=== PATIENT | female | born 1990 | race African-American/Black ===

== ENCOUNTER 2016-08-18 13:44 | Emergency (ER) | payer OTHER ==
[2016-08-18 14:15] VITALS: BP 136/77; PULSE 111; TEMP 99; BMI 34.4
--- NOTE | 2016-08-18 14:47 | PDOC ---
History of Present Illness - General Chief Complaint: Vaginal Sxs Stated Complaint: PAIN Time Seen by Provider: 08/18/16 14:21 History Source: Patient Exam Limitations: No Limitations - History of Present Illness Travel History: No Initial Comments: 08/18/16 14:45 26 yr female with 3 days vaginal itching and white discharge. Pt denies fever, no abd pain or back pain. No history of STD's. Timing/Duration: reports: constant Quality: reports: mild Pain Radiation: reports: no radiation Activities at Onset: reports: none Past History - Past Medical History Allergies/Adverse Reactions: Allergies Allergy/AdvReac Type Severity Reaction Status Date / Time No Known Allergies Allergy Verified 08/18/16 14:11 Home Medications: Ambulatory Orders Miconazole/Cleanser 17 On Wipe [Monistat 3 Combo Pack] 1 each VG HS #1 kit 08/18 Other medical history: DENIES - Surgical History Other Surgical History: 08/18/16 14:45 none - Immunization History Immunization Up to Date: Yes - Psycho/Social/Smoking Cessation Hx Anxiety: No Suicidal Ideation: No Smoking History: Former smoker Have you smoked in the past 12 months: Yes Information on smoking cessation initiated: No Hx Alcohol Use: No Drug/Substance Use Hx: No Substance Use Type: None Abd/GI Specific PMHX - Complaint Specific PMHX Colitis: No Diverticulitis: No Gall Bladder Disease: No GERD: No Hepatitis: No Irritable Bowel Synd (IBS): No Pancreatitis: No GI Ulcer Disease: No Review of Systems - Review of Systems Able to Perform ROS?: Yes Is the patient limited [place] proficient: No Constitutional: No: Symptoms Reported HEENTM: No: Symptoms Reported Respiratory: No: Symptoms reported Cardiac (ROS): No: Symptoms Reported ABD/GI: No: Symptoms Reported, See HPI : Yes: See HPI *Physical Exam - Vital Signs Last Vital Signs Temp Pulse Resp BP Pulse Ox 99 F 111 H 20 136/77 08/18/16 14:11 08/18/16 14:11 08/18/16 14:11 08/18/16 14:11 - Physical Exam General Appearance: Yes: Nourished, Appropriately Dressed HEENT: positive: EOMI, ABILIO, Normal ENT Inspection, TMs Normal, Pharynx Normal Neck: positive: Supple. negative: Tender Respiratory/Chest: positive: Lungs Clear, Normal Breath Sounds Cardiovascular: positive: Regular Rhythm, Regular Rate Female Pelvic Exam: positive: normal external exam, normal adnexa, discharge ( white clumpy) Gastrointestinal/Abdominal: positive: Normal Bowel Sounds, Soft. negative: Tender Musculoskeletal: positive: Normal Inspection Extremity: positive: Normal Capillary Refill, Normal Inspection, Normal Range of Motion Integumentary: positive: Normal Color, Dry, Warm Neurologic: positive: Fully Oriented, Alert, Normal Mood/Affect, Normal Response , Motor Strength 5/5 Medical Decision Making - Medical Decision Making 08/18/16 14:46 cc: vaginal itching with white discharge for 3 days no urinary complaints will check for , send chlamydia/GC culture most likely yeas infection will treat *DC/Admit/Observation/Transfer Diagnosis at time of Disposition: Vaginal yeast infection - Discharge Dispostion Disposition: HOME Condition at time of disposition: Good - Prescriptions Prescriptions: Miconazole/Cleanser 17 On Wipe [Monistat 3 Combo Pack] 1 each VG HS #1 kit - Referrals Referrals: Isabella Nguyen MD [Staff Physician] - - Patient Instructions Additional Instructions: nothing in the vagina except the prescribed medication no sexual activity until symptoms have resolved use cotton underwear, loose fitting pants, avoid nothing tight follow with the customs compliance analyst for follow up as needed
[2016-08-18 14:49] LABS: URINE APPEARANCE SLCLOUDY; URINE BILIRUBIN NEGATIVE (NEGATIVE); URINE BLOOD NEGATIVE (NEGATIVE); URINE COLOR YELLOW; URINE GLUCOSE (UA) NEGATIVE (NEGATIVE); URINE KETONE NEGATIVE (NEGATIVE); URINE NITRITE NEGATIVE (NEGATIVE); URINE PROTEIN NEGATIVE (NEGATIVE); URINE UROBILINOGEN NEGATIVE E.U./dl (0.2-1.0)
[2016-08-18 14:50] LABS: URINE LEUK ESTERASE TRACE (NEGATIVE)
[2016-08-18 14:53] LABS: URINE MUCUS FEW; URINE RBC 1 /hpf (0-3); URINE WBC 2 /hpf (3-5)
== END 2016-08-18 15:17 | disposition home or self-care (01) ==
LOC: JERFT 13:44
DX: B37.3 Candidiasis of vulva and vagina (principal)
CPT/HCPCS: 36415; 81003; 81015; 84703; 87491; 87591; 99281-25

== ENCOUNTER 2016-12-29 08:20 | Emergency (ER) | payer OTHER ==
[2016-12-29 08:33] VITALS: BP 130/79; PULSE 82; TEMP 98.6; BMI 32.5
[2016-12-29 08:58] LABS: URINE APPEARANCE SLCLOUDY; URINE BILIRUBIN NEGATIVE (NEGATIVE); URINE BLOOD NEGATIVE (NEGATIVE); URINE COLOR YELLOW; URINE GLUCOSE (UA) NEGATIVE (NEGATIVE); URINE KETONE NEGATIVE (NEGATIVE); URINE NITRITE NEGATIVE (NEGATIVE); URINE PROTEIN NEGATIVE (NEGATIVE); URINE UROBILINOGEN NEGATIVE E.U./dl (0.2-1.0)
--- NOTE | 2016-12-29 09:03 | PDOC ---
History of Present Illness - General Chief Complaint: Vaginal Sxs Stated Complaint: VAGINAL PROBLEM Time Seen by Provider: 12/29/16 08:36 History Source: Patient Exam Limitations: No Limitations - History of Present Illness Travel History: No Initial Comments: 12/29/16 08:58 26 yr female with c/o vaginal discharge for 2 weeks with fishy odor. Pt states mild itching. NO fever no abd pain , no diarrhea. Pt has history of tubal ligation. 12/29/16 09:03 Past History - Past Medical History Allergies/Adverse Reactions: Allergies Allergy/AdvReac Type Severity Reaction Status Date / Time No Known Allergies Allergy Verified 12/29/16 08:30 Home Medications: Ambulatory Orders Metronidazole 0.75% Vag. Gel [Metrogel 0.75% *Vaginal Gel* -] 1 applic VG HS #5 tube 12/29/16 Other medical history: denies - Immunization History Immunization Up to Date: Yes - Psycho/Social/Smoking Cessation Hx Anxiety: No Suicidal Ideation: No Smoking History: Never smoked Have you smoked in the past 12 months: Yes Information on smoking cessation initiated: No Hx Alcohol Use: No Drug/Substance Use Hx: No Substance Use Type: None Abd/GI Specific PMHX - Complaint Specific PMHX Colitis: No Diverticulitis: No Gall Bladder Disease: No GERD: No Hepatitis: No Irritable Bowel Synd (IBS): No Pancreatitis: No GI Ulcer Disease: No Review of Systems - Review of Systems Able to Perform ROS?: Yes Is the patient limited [place] proficient: No Constitutional: No: Symptoms Reported HEENTM: No: Symptoms Reported Respiratory: No: Symptoms reported Cardiac (ROS): No: Symptoms Reported ABD/GI: No: Symptoms Reported : No: Symptoms Reported Musculoskeletal: No: Symptoms Reported Integumentary: No: Symptoms Reported Neurological: No: Symptoms reported *Physical Exam - Vital Signs Last Vital Signs Temp Pulse Resp BP Pulse Ox 98.6 F 82 20 130/79 99 12/29/16 08:32 12/29/16 08:32 12/29/16 08:32 12/29/16 08:32 12/29/16 08:32 - Physical Exam General Appearance: Yes: Nourished, Appropriately Dressed HEENT: positive: EOMI, ABILIO Neck: negative: Tender Respiratory/Chest: positive: Lungs Clear, Normal Breath Sounds. negative: Chest Tender Cardiovascular: positive: Regular Rhythm, Regular Rate Female Pelvic Exam: positive: normal external exam, discharge, uterus (thin white). negative: adnexal tenderness Gastrointestinal/Abdominal: positive: Normal Bowel Sounds, Soft Lymphatic: negative: Adenopathy Musculoskeletal: positive: Normal Inspection Extremity: positive: Normal Capillary Refill, Normal Inspection, Normal Range of Motion Integumentary: positive: Normal Color, Dry, Warm Neurologic: positive: Fully Oriented, Alert, Normal Mood/Affect, Normal Response , Motor Strength 5/5 Medical Decision Making - Medical Decision Making 12/29/16 09:09 cc: vaginal discharge with fishy odor for 2 weeks no abd pain or fever, no back pain or urinary symptoms will do cultures and treat for BV at this time 12/29/16 09:27 *DC/Admit/Observation/Transfer Diagnosis at time of Disposition: Vaginal discharge - Discharge Dispostion Disposition: HOME Condition at time of disposition: Good - Prescriptions Prescriptions: Metronidazole 0.75% Vag. Gel [Metrogel 0.75% *Vaginal Gel* -] 1 applic VG HS #5 tube - Referrals Referrals: STAFF,NOT ON [Primary Care Provider] - - Patient Instructions Additional Instructions: follow with your ripening room hand for follow up avoid any sexual activity until symptoms have resolved we will call you with any positive results that may need further treatment return to ER if any fever, abdominal or back pain or any worsening symptoms
[2016-12-29 09:07] LABS: URINE LEUK ESTERASE 3+ (NEGATIVE)
[2016-12-29 09:10] LABS: URINE HYALINE CAST 1 /lpf; URINE MUCUS MODERATE; URINE RBC 9 /hpf (0-3); URINE WBC 14 /hpf (3-5)
== END 2016-12-29 09:30 | disposition home or self-care (01) ==
LOC: JERFT 08:20
DX: N89.8 Other specified noninflammatory disorders of vagina (principal)
CPT/HCPCS: 36415; 81003; 81015; 84703; 87070; 87205; 87491; 87591; 99281-25